=== PATIENT | female | born 1985 | race African-American/Black ===

== ENCOUNTER 2017-08-04 23:10 | Emergency (ER) | payer OTHER, MEDICAID ==
[~2017-08-04] VITALS: Ht 157.5 cm; Wt 66.7 kg
[2017-08-05] MEDS ORDERED: KEFLEX500 M1 PO (00:53)
[2017-08-05] MEDS ORDERED: HYDROCODONE-AP1 EAC6 PO (00:53)
[2017-08-05 01:33] VITALS: BP 108/78
== END 2017-08-05 01:37 | disposition home or self-care (01) ==
LOC: M.ERS 23:10
DX: S02.92XA Unspecified fracture of facial bones, initial encounter for closed fracture (principal); W22.8XXA Striking against or struck by other objects, initial encounter; Y93.89 Activity, other specified; Y92.89 Other specified places as the place of occurrence of the external cause; Y99.8 Other external cause status

== ENCOUNTER 2017-10-06 12:11 | Emergency (ER) | payer OTHER, MEDICAID ==
[~2017-10-06] VITALS: Ht 157.5 cm; Wt 61.2 kg
[~2017-10-06 12:11] MED LIST: HYDROCODONE-AP1 EAC6 PO; KEFLEX500 M1 PO
[2017-10-06 13:15] VITALS: BP 111/70
== END 2017-10-06 13:15 | disposition home or self-care (01) ==
LOC: M.ERS 12:11
DX: S61.210A Laceration without foreign body of right index finger without damage to nail, initial encounter (principal); S61.212A Laceration without foreign body of right middle finger without damage to nail, initial encounter; W26.0XXA Contact with knife, initial encounter; Y93.89 Activity, other specified; Y92.89 Other specified places as the place of occurrence of the external cause; Y99.8 Other external cause status

== ENCOUNTER 2018-11-18 01:30 | Emergency (ER) | payer OTHER, MEDICAID ==
[~2018-11-18] VITALS: Ht 157.5 cm; Wt 69.4 kg
[2018-11-18 01:45] VITALS: BP 103/71
[2018-11-18] MEDS ORDERED: ALBENZA200 MG PO (03:15)
== END 2018-11-18 03:20 | disposition home or self-care (01) ==
LOC: M.ERS 01:30
DX: B80 Enterobiasis (principal); F17.200 Nicotine dependence, unspecified, uncomplicated